=== PATIENT | male | born 1975 | race Caucasian/White ===

== ENCOUNTER → 2017-02-15 | Outpatient (CLI) | payer BC | LOC: COL.LAB 13:39 | DX: K29.70 Gastritis, unspecified, without bleeding (principal) ==

== ENCOUNTER 2019-01-17 07:40 | Emergency (ER) | payer OTHER ==
[~2019-01-17] VITALS: Ht 170.2 cm; Wt 80.0 kg
[2019-01-17 07:46] VITALS: TEMP 98.1
[2019-01-17] MEDS ORDERED: PAXIL 20MG20 MG PO (07:55)
[2019-01-17 08:35] VITALS: BP 114/80; PULSE 72
== END 2019-01-17 08:40 | disposition home or self-care (01) ==
LOC: COL.ER 07:40
DX: S61.411A Laceration without foreign body of right hand, initial encounter (principal); W25.XXXA Contact with sharp glass, initial encounter

== ENCOUNTER → 2019-01-24 | Outpatient (CLI) | payer BC ==
[~2019-01-24] MED LIST: PAXIL 20MG20 MG PO
[2019-01-24 12:07] VITALS: BP 117/80; PULSE 63; TEMP 98.8
== END ==
LOC: COL.ER 11:47
DX: Z48.02 Encounter for removal of sutures (principal)

== ENCOUNTER → 2023-06-28 | Outpatient (CLI) | payer BC | LOC: COL.RAD 08:27 | DX: M25.511 Pain in right shoulder (principal) ==